=== PATIENT | male | born 1945 | race Hispanic/Latino ===

== ENCOUNTER 2016-12-28 19:11 | Emergency (ER) | payer MEDICARE ==
--- NOTE | 2016-12-28 20:36 | Emergency Department Report ---
HPI - General Chief Complaint: Head Injury Time Seen by Provider: 12/28/16 20:17 - HPI HPI: Room 26 The patient is 71-year-old male presenting with a chief complaint fall and head injury. Patient is currently a patient at [facility] under 1013 secondary to aggressive behavior. Staff reports the patient fell striking his head sustaining a laceration over the right eye. The patient has a history of Alzheimer's and is not able to provide a history. Patient presents to the ED with cervical collar in place Location: [see above] Duration: Occurred tonight Quality: Unknown Severity: Moderate Modifying factors: [see above] Context: [see above] Mode of transportation: [not driving] ED Past Medical Hx - Past Medical History Hx Psychiatric Treatment: Yes Additional medical history: alzheimers - Surgical History Past Surgical History?: No - Family History Family history: no significant - Social History Smoking Status: Unknown if ever smoked Substance Use Type: None ED Review of Systems ROS: Stated complaint: FALL Other details as noted in HPI Comment: Unobtainable due to pts medical conditions Physical Exam - Physical Exam Vital Signs: Vital Signs 12/28/16 12/28/16 19:28 19:49 Temperature 97.5 F L 97.8 F Pulse Rate 75 74 Respiratory 18 16 Rate Blood Pressure 169/75 124/68 O2 Sat by Pulse 97 95 Oximetry Physical Exam: GENERAL: The patient is well-developed well-nourished male lying on stretcher with cervical collar in place with obvious bleeding from laceration over right eye. [] HEENT: Normocephalic. There is approximately 3 cm laceration of the upper right eyelid swelling and ecchymosis. The right sclera is clear there is no evidence of hyphema. Extraocular motions are intact. Patient has moist mucous membranes. NECK: Cervical collar in place CHEST/LUNGS: Clear to auscultation. There is no respiratory distress noted. HEART/CARDIOVASCULAR: Regular. There is no tachycardia. There is no gallop rub or murmur. ABDOMEN: Abdomen is soft, nontender. Patient has normal bowel sounds. There is no abdominal distention. SKIN: There is approximately 3 cm laceration of the upper right eyelid swelling and ecchymosis. NEURO: The patient is awake. The patient is not cooperative with exam. The patient moves all extremities well. The patient has dementia and does not answer questions MUSCULOSKELETAL: There is no limitation range of motion. ED Course Vital Signs 12/28/16 12/28/16 19:28 19:49 Temperature 97.5 F L 97.8 F Pulse Rate 75 74 Respiratory 18 16 Rate Blood Pressure 169/75 124/68 O2 Sat by Pulse 97 95 Oximetry - Consultations Consultation #1: 12/28/16 22:50 Case discussed with [facility] transfer line- transfer service states that the attending Dr. Swift accepts the patient in transfer ED Medical Decision Making - EKG Data -: EKG Interpreted by [facility] EKG shows normal: sinus rhythm Rate: normal - EKG Data When compared to previous EKG there are: previous EKG unavailable Interpretation: other (no ischemic changes seen) - Radiology Data Radiology results: report reviewed (CT head, CT cervical spine), image reviewed (CT head, CT cervical spine) CT head (regular radiologist)-several small hemorrhagic lesions within the medial right frontal lobe. The largest measures 1.9 x 1.4 cm. No significant mass effect or vasogenic edema. These may be postemetic in etiology. There is soft tissue swelling over the right frontal calvarium without calvarial fracture. Possibility of underlying parenchymal lesion or ischemic changes are not excluded. CT cervical spine (read by radiologist) 6-nondisplaced fractures through the anterior arch of C1 on the right and posterior arch of C1 on the right. These fractures of uncertain age and may be chronic. There appears to be a callus formation along the anterior arch fracture. By definition, fractures are unstable. No other fracture. The odontoid process is intact. - Differential Diagnosis facial laceration, closed head injury, ICH, cervical fracture Critical care attestation.: If time is entered above; I have spent that time in minutes in the direct care of this critically ill patient, excluding procedure time. ED Disposition Clinical Impression: Facial laceration, Intracranial hemorrhage, C1 cervical fracture Disposition: [id number]/TX-[id number] ANOTHER TYPE HLTHCARE Is pt being admited?: No Does the pt Need Aspirin: No Condition: Serious Referrals: PRIMARY CARE, [Primary Care Provider] - 3-5 Days Time of Disposition: 22:53 (awaiting transport to [facility]) Blank Doc - Documentation Documentation: Laceration note Laceration location: Right supraorbital region Consent was obtained unobtainable Length of wound: 3cm The wound was anesthetized with lidocaine 1% approximately 5 mL's Wound was copiously irrigated with normal saline Site was prepped with Betadine Sutures used were 5.0 Ethilon The number of sutures placed in a simple interrupted fashion with 5 The wound had good approximation The wound had good hemostasis Antibiotic ointment was applied and the wound was dressed Suture removal discussed with patient and informed the sutures need to be removed in 3-5 days Laceration type: Simple There were no complications
[2016-12-28] MEDS ORDERED: NACL 0.9% 500 ML IR ONE (20:37)
[2016-12-28] MEDS ORDERED: HYDROGEN PEROXIDE ONE (20:44)
[2016-12-28] MEDS: BOOSTRIX IM ONE (20:50)
[2016-12-28] MEDS ORDERED: XYLOCAINE 2% INFILTRATI ONE (22:00)
--- NOTE | 2016-12-28 22:35 | Cat Scan Report ---
FINAL REPORT EXAM: CT CERVICAL SPINE WO CON HISTORY: head injury after fall COMPARISON: None available. TECHNIQUE: Axial images obtained through the cervical spine. Additional sagittal and coronal reformatted images were obtained. FINDINGS: Straightening of the cervical spine. Cervical vertebral body heights are preserved.Nondisplaced fractures through the anterior arch of C1 on the right and posterior arch of C1 on the right. These fractures of uncertain age. There appears to be callus formation along anterior arch fracture. By definition, fractures unstable. No other fracture. Otherwise, odontoid process, articular pillars and occipital condyles are intact. Moderate severe loss of disc height C3-C4 level mild to moderate loss of disc height throughout the remainder of the cervical spine. Mild canal stenosis and moderate severe foraminal narrowing C3-C4 and-C C4-C5 levels. Irdv-[id number] foraminal narrowing C5-C6 and C6-C7 levels. Mild depression of the superior T1 endplate which appears chronic. Remote fracture of the medial left clavicular head. IMPRESSION: Nondisplaced fractures through the anterior arch of C1 on the right and posterior arch of C1 on the right. These fractures of uncertain age and may be chronic. There appears to be callus formation along anterior arch fracture. By definition, fractures are unstable. No other fracture. The odontoid process is intact. Mild depression of the superior T1 endplate which appears chronic. Moderate degenerative changes. Remote fracture of the medial margin of the left clavicular head. Findings discussed with Dr. RAMAN on December 28, 2016 at 2233 hours EST.
--- NOTE | 2016-12-28 22:42 | Cat Scan Report ---
FINAL REPORT EXAM: CT HEAD/BRAIN WO CON HISTORY: head injury COMPARISON: None available. TECHNIQUE: Contiguous axial images were obtained. FINDINGS: There are small intraparenchymal hematoma at the medial margin right frontal lobe. The largest measures 1.9 x 1.4 centimeters. There are 2 smaller intraparenchymal hemorrhages measuring 5 x 4 and 7 x 5 millimeters. There are 2 additional smaller hemorrhagic foci measuring 3 x 4 4 x 4 millimeters. No associated mass effect. No extra-axial hemorrhage. Soft tissue swelling over the right frontal calvarium. No calvarial fracture. Partial opacification right frontal sinus. Mild to moderate mucosal thickening ethmoid air cells. Mastoid air cells are clear. Moderate age related volume loss with compensatory dilatation of the ventricular system and moderately advanced chronic small vessel ischemic disease. Otherwise, sheldon-white differentiation preserved. Calvarium grossly intact. Chronic appearing bilateral nasal bone fractures. IMPRESSION: Several small hemorrhagic lesions within the medial right frontal lobe. The largest measures 1.9 x 1.4 centimeters. No significant mass effect or vasogenic edema. These may be posttraumatic in etiology. There is soft tissue swelling over the right frontal calvarium without calvarial fracture. Possibility of underlying parenchymal lesion or ischemic changes are not excluded. Moderate age related volume loss and moderately advanced chronic small vessel ischemic disease.
[2016-12-28 23:23] VITALS: BP 155/82
[2016-12-28] MEDS: KEPPRA 1,000 MG/NS 0.75% 100ML 1,000 MG/100 ML BAG IV ONE (23:27)
== END 2016-12-28 23:30 | disposition other institution (70) ==
LOC: ED 19:11
DX: S12.090A Other displaced fracture of first cervical vertebra, initial encounter for closed fracture (principal); S05.41XA Penetrating wound of orbit with or without foreign body, right eye, initial encounter; S06.309A Unspecified focal traumatic brain injury with loss of consciousness of unspecified duration, initial encounter; G30.9 Alzheimer's disease, unspecified; F02.80 Dementia in other diseases classified elsewhere, unspecified severity, without behavioral disturbance, psychotic disturbance, mood disturbance, and anxiety; W19.XXXA Unspecified fall, initial encounter; Y93.89 Activity, other specified; Y92.89 Other specified places as the place of occurrence of the external cause; Y99.8 Other external cause status
CPT/HCPCS: 12013; 70450; 72125; 90471; 90715; 93005; 93010; 96374; 99285; J1953